=== PATIENT | female | born 1945 | race Asian ===

== ENCOUNTER 2017-12-16 05:19 | Emergency (ER) | payer MEDICARE ==
[~2017-12-16] VITALS: Ht 157.5 cm; Wt 61.7 kg
--- NOTE | 2017-12-16 05:23 | NUR ---
Dallin felix in [facility] - 12/16/17 at 0635 by JERMAN LILIAN Arambula at bedside examining patient.
[2017-12-16 05:40] VITALS: BP_SYST 139
--- NOTE | 2017-12-16 05:40 | NUR ---
ER Dr. Arambula at bedside examining patient.
--- NOTE | 2017-12-16 05:40 | NUR ---
Patient to ER bed 7 to gown for evaluation. Side rails up. Report given to TELMA DOMINGUEZ.
--- NOTE | 2017-12-16 05:50 | NUR ---
Pt states that she has had dizziness and headache 8/10 for two hours. Pt is nauseous and vomitting. Equal, strong laborer/grade check in all extremities. No slurring. No facial symmetry. Will continue to monitor. No distress noted. AAOx4.
[2017-12-16] MEDS ORDERED: KETOROLAC TROMETHAMINE 60 MG/2 ML VIAL IM ONE (06:00)
[2017-12-16] MEDS ORDERED: MECLIZINE HCL 25 MG TABLET (ANITVERT) PO ONE (06:00)
[2017-12-16 07:24] VITALS: BP_SYST 112
--- NOTE | 2017-12-16 07:24 | NUR ---
Patient given written and verbal discharge instructions and verbalizes understanding. ER MD discussed with patient the results and treatment provided. Patient in stable condition. ID arm band removed. Rx of Antivert given. Patient educated on pain management and to follow up with PMD. Pain Scale 0/10. Opportunity for questions provided and answered. Medication side effect fact sheet provided.
== END 2017-12-16 07:24 | disposition home or self-care (01) ==
LOC: SED 05:19
DX: R42 Dizziness and giddiness (principal); I10 Essential (primary) hypertension
CPT/HCPCS: 70450; 93005; 96372; 99284; J1885; J8597

== ENCOUNTER 2020-03-28 11:33 | Emergency (ER) | payer MEDICARE, OTHER ==
[~2020-03-28] VITALS: Ht 157.5 cm; Wt 68.0 kg
[2020-03-28 11:33] VITALS: BP_SYST 186
[2020-03-28] MEDS ORDERED: NACL 0.9% 1,000 ML IV ONE (11:51)
[2020-03-28] MEDS ORDERED: GUAI120L56 PO (11:55)
[2020-03-28] MEDS ORDERED: SIMV10TA2 PO (11:55)
[2020-03-28] MEDS ORDERED: POTA10TA PO (11:55)
[2020-03-28] MEDS ORDERED: OMEP20CA11 PO (11:55)
[2020-03-28] MEDS ORDERED: CEPH-568 PO (11:55)
[2020-03-28] MEDS ORDERED: DOXY100T2 PO (11:55)
[2020-03-28] MEDS ORDERED: AMLO5TAB4 PO (11:55)
[2020-03-28] MEDS ORDERED: ONDANSETRON HCL 4 MG/2 ML VIAL IVP ONE (12:00)
[2020-03-28 12:23] LABS: BASOPHILS % (AUTO) 0.8 % (0.0-2.0); EOSINOPHILS # (AUTO) 0.1 K/uL (0.0-0.4); EOSINOPHILS % (AUTO) 1.7 % (0.0-4.0); HEMATOCRIT 39.8 % (36-48); HEMOGLOBIN 13.4 g/dL (12.0-16.0); MEAN CORPUSCULAR HEMOGLOBIN 29 pg (27-31); MEAN CORPUSCULAR HGB CONC 34 % (32-36); MEAN CORPUSCULAR VOLUME 86 fL (79.0-98.0); MONOCYTES # (AUTO) 0.4 K/uL (0.0-1.0); MONOCYTES % (AUTO) 7.6 % (1.7-9.3); NEUTROPHILS # (AUTO) 3.6 K/uL (1.8-7.7); NEUTROPHILS % (AUTO) 69.9 % (40.0-70.0); PLATELET COUNT (AUTO) 203 K/uL (130-430); RED BLOOD CELL COUNT(AUTO) 4.63 MIL/uL (4.2-6.2); RED CELL DISTRIBUTION WIDTH 15.6 % (9.0-15.0); WHITE BLOOD COUNT (AUTO) 5.1 K/uL (4.8-10.8)
[2020-03-28 12:39] LABS: ANION GAP 8 (5-15); CALCIUM 8.2 mg/dL (8.4-11.0); CHLORIDE 101 mmol/L (98-107); CREATININE 0.88 mg/dL (0.55-1.30); GLUCOSE 120 mg/dL (70-99); POTASSIUM 3.5 mmol/L (3.5-5.1); SODIUM SERUM 137 mmol/L (136-145); UREA NITROGEN, BLOOD 18 mg/dL (8-21)
[2020-03-28 12:41] LABS: PROTHROMBIN TIME 9.6 SECS (9.5-12.5)
[2020-03-28 12:44] LABS: ALANINE AMINOTRANSFERASE 28 U/L (12-78); ASPARTATE AMINOTRANSFERASE 23 U/L (10-37); LIPASE 97 U/L (73-393); TOTAL BILIRUBIN 0.4 mg/dL (0.0-1.0)
[2020-03-28 12:45] LABS: ALCOHOL, BLOOD < 3 mg/dL (<10)
[2020-03-28 12:46] LABS: ACETAMINOPHEN < 1 ug/mL (1-30); ALBUMIN 3.4 g/dL (3.4-4.8)
[2020-03-28 12:47] LABS: BILIRUBIN,URINE NEGATIVE (NEGATIVE); BLOOD, URINE NEGATIVE (NEGATIVE); CLARITY/URINE CLEAR (CLEAR); COLOR,URINE YELLOW (YELLOW); GLUCOSE,URINE NEGATIVE (NEGATIVE); KETONES,URINE NEGATIVE (NEGATIVE); LEUKOCYTE ESTERASE ,URINE NEGATIVE (NEGATIVE); NITRITE, URINE NEGATIVE (NEGATIVE); PROTEIN URINE NEGATIVE (NEGATIVE); UROBILINOGEN,URINE 0.2 (0.2-1.0)
[2020-03-28 12:58] LABS: BARBITURATE, URINE NEGATIVE (NEG <=200); BENZODIAZEPINE, URINE NEGATIVE (NEG <=150); CANNABINOID, URINE NEGATIVE (NEG <=50); COCAINE, URINE NEGATIVE (NEG <=150); METHAMPHETAMINES SCREEN,URINE NEGATIVE (NEG <=500); OPIATE, URINE NEGATIVE (NEG <=100); UR TRICYCLIC ANTIDEPRESSANTS NEGATIVE (NEG <=300); URINE AMPHETAMINE NEGATIVE (NEG <=500); URINE METHADONE NEGATIVE (NEG <=200); URINE OXYCODONE SCREEN NEGATIVE (NEG <=100); URINE PROPOXYPHENE SCREEN NEGATIVE (NEG <=300)
[2020-03-28 12:59] LABS: PHENCYCLIDINE SCREEN,URINE NEGATIVE (NEG <=25)
[2020-03-28] MEDS ORDERED: ACETAMINOPHEN 325 MG TABLET PO ONE (13:15)
[2020-03-28] MEDS ORDERED: MECLIZINE HCL 25 MG TABLET (ANITVERT) PO ONE (13:15)
[2020-03-28] MEDS ORDERED: DIPHENHYDRAMINE INJ 50 MG/ML VIAL IVP ONE (13:15)
[2020-03-28] MEDS ORDERED: MORPHINE 2 MG/ML INJ. SYRINGE IVP ONE (15:00)
[2020-03-28 16:30] VITALS: BP_SYST 186
== END 2020-03-28 16:29 | disposition home or self-care (01) ==
LOC: SED 11:33
DX: H81.10 Benign paroxysmal vertigo, unspecified ear (principal); I11.0 Hypertensive heart disease with heart failure; I50.9 Heart failure, unspecified; Z79.899 Other long term (current) drug therapy
CPT/HCPCS: 36415; 70450; 71045; 80053; 80307; 81003; 82550; 83605; 83690; 84484; 85025; 85610; 85730; 87040; 93005; 96361; 96374; 96375; 99285; G0480; G0481; G0482; J1200; J2405; J7030; J8597; J2270

== ENCOUNTER 2021-08-09 17:14 | Emergency (ER) | payer MEDICARE, OTHER ==
[~2021-08-09] VITALS: Ht 157.5 cm; Wt 65.8 kg
[~2021-08-09 17:14] MED LIST: AMLO5TAB4 PO; CEPH-568 PO; DOXY100T2 PO; GUAI120L56 PO; OMEP20CA15 PO; POTA10TA PO; SIMV10TA2 PO
[2021-08-09 17:32] VITALS: BP_SYST 145
[2021-08-09 18:08] LABS: BILIRUBIN,URINE NEGATIVE (NEGATIVE); BLOOD, URINE 1+ (NEGATIVE); COLOR,URINE YELLOW (YELLOW); GLUCOSE,URINE NEGATIVE (NEGATIVE); KETONES,URINE NEGATIVE (NEGATIVE); LEUKOCYTE ESTERASE ,URINE 2+ (NEGATIVE); NITRITE, URINE POSITIVE (NEGATIVE); PROTEIN URINE TRACE (NEGATIVE); UROBILINOGEN,URINE 0.2 (0.2-1.0)
[2021-08-09] MEDS ORDERED: FAMOTIDINE 20 MG TABLET PO ONE (18:30)
[2021-08-09] MEDS ORDERED: ONDANSETRON 4 MG ODT TAB PO ONE (18:30)
[2021-08-09] MEDS ORDERED: MAG-AL HYDROX/SIMETH 30 ML UDC PO ONE (18:30)
[2021-08-09 18:46] LABS: CLARITY/URINE HAZY (CLEAR)
[2021-08-09] MEDS ORDERED: NITROFURANTOIN MONOHYD/M-CRYST 100 MG CAPSULE (MacroBID) PO ONE (19:00)
[2021-08-09] MEDS ORDERED: NITR-85 PO (19:00)
[2021-08-09 19:25] VITALS: BP_SYST 145
[2021-08-09 19:30] LABS: BACTERIA,URINE FEW /HPF (None Seen); WBC,URINE >100 /HPF (0-3)
[2021-08-09 19:31] LABS: MUCUS,URINE None Seen /LPF (None Seen)
== END 2021-08-09 19:25 | disposition home or self-care (01) ==
LOC: SED 17:14
DX: N39.0 Urinary tract infection, site not specified (principal); I10 Essential (primary) hypertension; Z79.899 Other long term (current) drug therapy
CPT/HCPCS: 81000; 87086; 99284; Q0162